=== PATIENT | male | born 1965 | race Caucasian/White ===

== ENCOUNTER 2018-09-12 15:31 | Outpatient (CLI) | payer MEDICAID | END 2018-09-12 15:32 | disposition EMS.NT | LOC: EMS 15:31 | PROVIDERS: ATTEND Surgery | DX: Z03.89 Encounter for observation for other suspected diseases and conditions ruled out (principal) ==

== ENCOUNTER 2018-11-07 03:19 | Outpatient (CLI) | payer MEDICAID | END 2018-11-07 03:20 | disposition critical access hospital (66) | LOC: EMS 03:19 | PROVIDERS: ATTEND Surgery | DX: R10.9 Unspecified abdominal pain (principal); R25.2 Cramp and spasm; S90.811A Abrasion, right foot, initial encounter; W06.XXXA Fall from bed, initial encounter; Y92.003 Bedroom of unspecified non-institutional (private) residence as the place of occurrence of the external cause | CPT/HCPCS: A0425; A0429; A0999 ==

== ENCOUNTER 2018-11-07 03:52 | Emergency (ER) | payer MEDICAID ==
--- NOTE | 2018-11-07 03:55 | ED Physician Documentation ---
History of Present Illness - Stated complaint Stated Complaint: ABD CRAMPING/HEEL LAC - History obtained from History obtained from: Patient, EMS - History of Present Illness Timing: Chronic Pain level now: 2 Improved by: nothing Worsened by: no exacerbating factors - Additonal information Additional information: DEJA, found on floor next to his bed. He does not recall falling out of bed, but does recall getting into bed last night. Blood was noted coming from left heel and he was having abdominal cramping discomfort and thus 911 was called. Medics arrived to find patient on toilet in bathroom, no active bleeding but dried blood on feet. Patient tells me he has had this abdominal discomfort for decades without specific diagnosis. He exhibits significant tremulousness; medic report includes h/o Parkinson's Disease. Patient tells me he doubts this diagnosis, believes he has Lyme Disease. He says he is not on PD medications because "they don't work", as well as bothersome side effecs Review of Systems Cardiac: reports: Chest pain / pressure (vague, mild chest discomfort, unclear onset). denies: Palpitations, Pedal edema, Calf pain Respiratory: reports: Reviewed and negative GI: reports: Abdominal Pain. denies: Nausea, Vomiting, Constipation, Diarrhea : denies: Dysuria, Frequency Skin: reports: Laceration (s) (left heel) Musculoskeletal: denies: Neck pain, Back pain Neurologic: denies: Generalized weakness, Focal weakness, Numbness, Headache, Head injury PD PAST MEDICAL HISTORY - Past Medical History Past Medical History: Yes Neuro: Parkinson's - Past Surgical History Past Surgical History: No - Present Medications Home Medications: Ambulatory Orders Medication Instructions Recorded Confirmed LORazepam [Lorazepam] 0.5 - 1 mg PO TID PRN #15 tablet 11/07/18 - Allergies Allergies/Adverse Reactions: Allergies Allergy/AdvReac Type Severity Reaction Status Date / Time Sulfa (Sulfonamide Allergy Unknown Verified 11/07/18 03:56 Antibiotics) - Living Situation Living Situation: reports: With family Living Arrangement: reports: At home - Social History Does the pt smoke?: No PD ED PE NORMAL - Vitals Vital signs reviewed: Yes - General General: Alert and oriented X 3, Well developed/nourished, Other (rhythmic tremulousness BUE) - HEENT HEENT: Atraumatic, PERRL, EOMI, Moist mucous membranes - Neck Neck: Supple, no meningeal sign, No bony TTP - Cardiac Cardiac: RRR, No murmur - Respiratory Respiratory: No respiratory distress, Clear bilaterally - Abdomen Abdomen: Normal bowel sounds, Soft, Non tender, Non distended - Derm Derm: Normal color, Warm and dry - Extremities Extremities: No edema - Neuro Neuro: Alert and oriented X 3 PD ED PE EXPANDED - Extremities Feet visual: 1 - laceration (superficial 0.5cm laceration without active bleeding) Results - Vitals Vitals: Vital Signs - 24 hr 11/07/18 11/07/18 11/07/18 03:53 04:00 06:00 Temperature 36.9 C Heart Rate 78 78 63 Respiratory 17 16 12 Rate Blood Pressure 158/86 H 158/86 H 96/63 O2 Saturation 97 97 96 11/07/18 06:57 Temperature Heart Rate 70 Respiratory 12 Rate Blood Pressure 102/70 O2 Saturation 98 Oxygen O2 Source Room air - Labs Labs: Laboratory Tests 11/07/18 11/07/18 11/07/18 04:38 04:38 04:38 WBC 4.4 L RBC 4.09 L Hgb 11.5 L Hct 34.6 L MCV 84.5 MCH 28.1 MCHC 33.3 RDW 18.3 H Plt Count 317 MPV 7.4 Neut # (Auto) 3.0 Lymph # (Auto) 0.8 L [place] # (Auto) 0.5 Eos # (Auto) 0.1 Baso # (Auto) 0.1 Absolute Nucleated RBC 0.00 Nucleated RBC % 0.1 Sodium 141 Potassium 3.8 Chloride 104 Carbon Dioxide 26 Anion Gap 11.0 BUN 14 Creatinine 0.6 Estimated GFR (MDRD) 142 Glucose 99 Calcium 8.7 Total Bilirubin 0.5 AST 18 ALT 16 Alkaline Phosphatase 63 Troponin I < 0.04 Total Protein 6.1 L Albumin 3.7 Globulin 2.4 Albumin/Globulin Ratio 1.5 Lipase 37 PD MEDICAL DECISION MAKING - ED course Complexity details: reviewed results, re-evaluated patient, considered differential, d/w patient ED course: Given 1mg PO ativan with good result; patient's tremulousness markedly improved. Reassuring blood tests and EKG. Encouraged to return if worse or new signs/symptoms develop, and instructed to f/u with PMD Departure - Departure Disposition: 01 Home, Self Care Clinical Impression: Abdominal pain Qualifiers: Abdominal location: generalized Qualified Code(s): R10.84 - Generalized abdominal pain Fall Qualifiers: Encounter type: initial encounter Qualified Code(s): W19.XXXA - Unspecified fall, initial encounter Condition: Good Instructions: ED Mechanical Fall, ED Abdominal Pain Unkn Cause Male Prescriptions: LORazepam [Lorazepam] 0.5 - 1 mg PO TID PRN #15 tablet PRN Reason: Spasms Discharge Date/Time: 11/07/18 10:11
[2018-11-07] MEDS ORDERED: LORazepam 1 MG TABLET PO STA (04:23)
[2018-11-07 04:51] LABS: BASOPHILS # (AUTO) 0.1 10^3/uL (0.0-0.1); BASOPHILS % (AUTO) 1.2 %; EOSINOPHILS # (AUTO) 0.1 10^3/uL (0.0-0.7); EOSINOPHILS % (AUTO) 1.8 %; HGB - HEMOGLOBIN 11.5 g/dL (14.0-18.0); LYMPHOCYTES # (AUTO) 0.8 10^3/uL (1.5-3.5); MEAN CORPUSCULAR HEMOGLOBIN 28.1 pg (27.0-31.0); MEAN CORPUSCULAR HGB CONC 33.3 g/dL (32.0-36.0); MEAN CORPUSCULAR VOLUME 84.5 fL (80.0-94.0); MEAN PLATELET VOLUME 7.4 fL (7.4-11.4); MONOCYTES # (AUTO) 0.5 10^3/uL (0.0-1.0); MONOCYTES % (AUTO) 11.7 %; NEUTROPHILS % (AUTO) 67.3 %; PLT - PLATELET COUNT 317 10^3/uL (130-450); RED BLOOD COUNT 4.09 10^6/uL (4.70-6.10); RED CELL DISTRIBUTION WIDTH 18.3 % (12.0-15.0); WHITE BLOOD COUNT 4.4 x10^3/uL (4.8-10.8)
[2018-11-07 04:59] LABS: ALBUMIN 3.7 g/dL (3.2-5.5); ALBUMIN/GLOBULIN RATIO 1.5 (1.0-2.2); BILIRUBIN,TOTAL 0.5 mg/dL (0.2-1.0); CALCIUM 8.7 mg/dL (8.5-10.3); CREATININE 0.6 mg/dL (0.6-1.2); TOTAL PROTEIN 6.1 g/dL (6.7-8.2)
[2018-11-07 06:58] VITALS: BP 102/70
== END 2018-11-07 10:11 | disposition home or self-care (01) ==
LOC: EDBD → EDUNIT# → ED 03:52
DX: R10.84 Generalized abdominal pain (principal); S91.312A Laceration without foreign body, left foot, initial encounter; W06.XXXA Fall from bed, initial encounter; G20 Parkinson's disease
CPT/HCPCS: 36415; 80053; 83690; 84484; 85025; 93005; 99283; J8499

== ENCOUNTER 2018-11-20 08:08 | Outpatient (CLI) | payer MEDICAID | END 2018-11-20 08:09 | disposition EMS.NT | LOC: EMS 08:08 | PROVIDERS: ATTEND Surgery | DX: S41.111A Laceration without foreign body of right upper arm, initial encounter (principal); W18.30XA Fall on same level, unspecified, initial encounter; Y92.002 Bathroom of unspecified non-institutional (private) residence as the place of occurrence of the external cause ==

== ENCOUNTER 2019-01-25 20:09 | Outpatient (CLI) | payer MEDICAID | END 2019-01-25 20:10 | disposition EMS.NT | LOC: EMS 20:09 | PROVIDERS: ATTEND Surgery | DX: R19.8 Other specified symptoms and signs involving the digestive system and abdomen (principal) ==

== ENCOUNTER 2019-01-26 00:01 | Outpatient (CLI) | payer MEDICAID | END 2019-01-26 00:02 | disposition EMS.NT | LOC: EMS 00:01 | PROVIDERS: ATTEND Surgery | DX: Z03.89 Encounter for observation for other suspected diseases and conditions ruled out (principal) ==

== ENCOUNTER 2019-01-26 08:40 | Outpatient (CLI) | payer MEDICAID | END 2019-01-26 08:41 | disposition EMS.NT | LOC: EMS 08:40 | PROVIDERS: ATTEND Surgery | DX: M25.521 Pain in right elbow (principal); W18.39XA Other fall on same level, initial encounter; Y92.003 Bedroom of unspecified non-institutional (private) residence as the place of occurrence of the external cause ==

== ENCOUNTER 2019-01-26 09:49 | Outpatient (CLI) | payer MEDICAID | END 2019-01-26 09:50 | disposition EMS.NT | LOC: EMS 09:49 | PROVIDERS: ATTEND Surgery | DX: Z03.89 Encounter for observation for other suspected diseases and conditions ruled out (principal) ==

== ENCOUNTER 2019-02-07 07:56 | Outpatient (CLI) | payer MEDICAID | END 2019-02-07 07:57 | disposition EMS.NT | LOC: EMS 07:56 | PROVIDERS: ATTEND Surgery | DX: Z03.89 Encounter for observation for other suspected diseases and conditions ruled out (principal) ==

== ENCOUNTER 2019-03-03 13:21 | Outpatient (CLI) | payer MEDICAID | END 2019-03-03 13:22 | disposition EMS.NT | LOC: EMS 13:21 | PROVIDERS: ATTEND Surgery | DX: Z03.89 Encounter for observation for other suspected diseases and conditions ruled out (principal) ==

== ENCOUNTER 2019-09-07 14:47 | Outpatient (CLI) | payer MEDICAID ==
--- NOTE | 2019-09-09 04:16 | Ultrasound Report ---
Reason: EDEMA Procedure Date: 09/07/2019 Accession Number: [id number] / [id number] Procedure: US - Duplex Ext Veins Bilateral CPT Code: Final Report FULL RESULT: EXAM: BILATERAL LOWER EXTREMITY VENOUS ULTRASOUND EXAM DATE: 09/07/2019 04:01 PM. CLINICAL HISTORY: EDEMA. COMPARISON: None. TECHNIQUE: Real-time sonographic vascular imaging was performed by the preschool teacher assistant through the lower extremities utilizing both color-flow and Doppler spectral analysis. Multiple bank representative static images were saved for review. FINDINGS: Right: Common Femoral Vein (CFV): Normal. CFV-GSV Junction: Normal. Profunda Femoral Vein (PFV): Normal. Femoral Vein (FV) Prox: Normal. Femoral Vein (FV) Mid: Normal. Femoral Vein (FV) Dist: Normal. Popliteal Vein: Normal. Posterior Tibial Veins: Normal. Peroneal Veins: Normal. Left: Common Femoral Vein (CFV): Normal. CFV-GSV Junction: Normal. Profunda Femoral Vein (PFV): Normal. Femoral Vein (FV) Prox: Normal. Femoral Vein (FV) Mid: Normal. Femoral Vein (FV) Dist: Normal. Popliteal Vein: Normal. Posterior Tibial Veins: Normal. Peroneal Veins: Normal. Other: None. IMPRESSION: No evidence for deep venous thrombosis bilaterally. RADIA
== END 2019-09-07 14:48 | disposition home or self-care (01) ==
LOC: DI 14:47
PROVIDERS: ATTEND Physician Assistant
DX: R60.0 Localized edema (principal)
CPT/HCPCS: 93970

== ENCOUNTER 2020-05-16 15:16 | Outpatient (CLI) | payer MEDICAID ==
--- NOTE | 2020-05-16 17:14 | XRAY Report ---
PROCEDURE: Thoracic Spine 2 View INDICATIONS: DORSALGIA TECHNIQUE: 3 views of the thoracic spine were acquired. COMPARISON: None. FINDINGS: Bones: No fractures or dislocations. No suspicious bony lesions. 12 pairs of ribs are noted, and a ppear intact where visualized. Soft tissues: No paravertebral stripe thickening. IMPRESSION: Thoracic spine without acute fracture or malalignment. Reviewed by: Marito Alan MD on 05/16/2020 5:13 PM PST Approved by: Marito Alan MD on 05/16/2020 5:13 PM PST Station ID: [id number]
== END 2020-05-16 23:59 | disposition home or self-care (01) ==
LOC: DI.WCP 15:16
PROVIDERS: ATTEND Family Medicine
DX: M54.6 Pain in thoracic spine (principal)
CPT/HCPCS: 72070

== ENCOUNTER 2020-09-05 12:22 | Outpatient (CLI) | payer MEDICAID ==
[2020-09-05 15:12] LABS: BASOPHILS % (AUTO) 0.7 %; EOSINOPHILS # (AUTO) 0.1 10^3/uL (0.0-0.7); EOSINOPHILS % (AUTO) 2.9 %; HCT - HEMATOCRIT 43.6 % (42.0-52.0); HGB - HEMOGLOBIN 14.3 g/dL (14.0-18.0); LYMPHOCYTES # (AUTO) 0.8 10^3/uL (1.5-3.5); LYMPHOCYTES % (AUTO) 18.5 %; MEAN CORPUSCULAR HEMOGLOBIN 32.4 pg (27.0-31.0); MEAN CORPUSCULAR HGB CONC 32.8 g/dL (32.0-36.0); MEAN CORPUSCULAR VOLUME 98.6 fL (80.0-94.0); MONOCYTES # (AUTO) 0.4 10^3/uL (0.0-1.0); MONOCYTES % (AUTO) 10.5 %; NEUTROPHILS # (AUTO) 2.8 10^3/uL (1.5-6.6); NEUTROPHILS % (AUTO) 67.2 %; PLT - PLATELET COUNT 368 10^3/uL (130-450); RED BLOOD COUNT 4.42 10^6/uL (4.70-6.10); RED CELL DISTRIBUTION WIDTH 12.4 % (12.0-15.0); WHITE BLOOD COUNT 4.1 x10^3/uL (4.8-10.8)
[2020-09-05 15:27] LABS: ALBUMIN 4.3 g/dL (3.2-5.5); ALBUMIN/GLOBULIN RATIO 1.6 (1.0-2.2); ALKALINE PHOSPHATASE 85 IU/L (42-121); ALT ALANINE AMINOTRANSFERASE 33 IU/L (10-60); AST ASPARTATE AMINOTRANSFERASE 31 IU/L (10-42); BILIRUBIN,TOTAL 0.7 mg/dL (0.2-1.0); BUN - BLOOD UREA NITROGEN 9 mg/dL (6-20); CALCIUM 9.2 mg/dL (8.5-10.3); CARBON DIOXIDE - CO2 28 mmol/L (21-32); CHLORIDE 101 mmol/L (101-111); CHOL/HDL RATIO 2.4 (<5.0); CHOLESTEROL 246 mg/dL; CREATININE 0.6 mg/dL (0.6-1.2); GFR - MDRD 141 (>89); GLUCOSE 92 mg/dL (70-100); HDL CHOLESTEROL 101 mg/dL; POTASSIUM 3.8 mmol/L (3.5-5.0); SODIUM 140 mmol/L (135-145); TRIGLYCERIDES 30 mg/dL; VALPROIC ACID (DEPAKOTE) 13.5 ug/mL
[2020-09-05 15:54] LABS: THYROID STIMULATING HORMONE 1.1 uIU/mL (0.34-5.60)
== END 2020-09-05 12:23 | disposition home or self-care (01) ==
LOC: LAB.S 12:22
PROVIDERS: ATTEND Family Medicine
DX: R20.8 Other disturbances of skin sensation (principal); M54.9 Dorsalgia, unspecified; K21.9 Gastro-esophageal reflux disease without esophagitis; F41.9 Anxiety disorder, unspecified; G20 Parkinson's disease
CPT/HCPCS: 36415; 80050; 80061; 80164; 83721